=== PATIENT | female | born 1975 | race Caucasian/White ===

== ENCOUNTER 2017-02-28 17:51 | Emergency (ER) | payer MEDICAID ==
[~2017-02-28] VITALS: Ht 170.2 cm; Wt 104.5 kg
[2017-02-28 20:11] VITALS: BP 128/81
== END 2017-02-28 20:41 | disposition left against medical advice (07) ==
LOC: EMS 17:53
DX: M25.572 Pain in left ankle and joints of left foot (principal); M25.472 Effusion, left ankle; F17.210 Nicotine dependence, cigarettes, uncomplicated; Z53.21 Procedure and treatment not carried out due to patient leaving prior to being seen by health care provider

== ENCOUNTER → 2019-10-09 | Outpatient (CLI) | payer MEDICAID | END | disposition home or self-care (01) | LOC: PUC 18:42 | DX: N94.9 Unspecified condition associated with female genital organs and menstrual cycle (principal) | CPT/HCPCS: 87081; 87255; 87491; 87591 ==

== ENCOUNTER → 2019-10-10 | Outpatient (CLI) | payer MEDICAID | END | disposition home or self-care (01) | LOC: PUC 12:11 | DX: N90.89 Other specified noninflammatory disorders of vulva and perineum (principal) | CPT/HCPCS: 87255 ==